=== PATIENT | female | born 1955 | race American Indian/Alaskan Native ===

== ENCOUNTER 2017-07-07 17:06 | Emergency (ER) | payer OTHER ==
[2017-07-07 17:38] VITALS: BP 144/76
--- NOTE | 2017-07-07 19:00 | XRay Report ---
FINAL REPORT PROCEDURE: XR HAND 2V LT TECHNIQUE: LEFT hand radiographs, AP and lateral views. CPT 25372-RN HISTORY: Pain COMPARISON: No prior studies are available for comparison. FINDINGS: Fracture (s) and/or Dislocation(s): None . Alignment: Normal . Joint space(s): Normal . Soft tissues: Normal . Bone mineralization: Normal . Foreign bodies: None . IMPRESSION: Normal Examination .
--- NOTE | 2017-07-07 19:00 | XRay Report ---
FINAL REPORT PROCEDURE: XR WRIST 2V LT TECHNIQUE: LEFT wrist radiographs, AP and lateral views. HISTORY: Pain COMPARISON: No prior studies are available for comparison. FINDINGS: Fracture(s)and/or Dislocation(s): None. Alignment: Normal. Joint space(s): Normal. Soft tissues: Normal. Bone mineralization: Normal. Foreign bodies: None. IMPRESSION: Normal Examination
[2017-07-07] MEDS ORDERED: NORCO 5/325 PO ONE (22:07)
[2017-07-07] MEDS ORDERED: MOTRIN PO ONE (22:07)
--- NOTE | 2017-07-07 22:09 | Emergency Department Report ---
Upper Extremity - HPI Chief Complaint: Extremity Problem,Nontraumatic Stated Complaint: SWELLING IN LEFT HAND Time Seen by Provider: 07/07/17 21:58 Upper Extremity: Left Forearm, Left Wrist Occurred When: 3 Days Severity: moderate Symptoms: Yes Pain with Movement, Yes Swelling, No Deformity, No Limited Range of Movement, No Numbness, No Weakness, No Bruising/Ecchymosis, No Laceration or Abrasion Other History: 61-year-old female past medical history hypertension presents with complaint of 2-3 months of intermittent pain and swelling left wrist and left forearm. Denies any direct trauma no fever no chills no nausea no vomiting denies any paresthesias but does state that she experiences some intermittent pain when flexing or extending her left wrist. This episode began approximately 4 days ago. Patient states she was taking Tylenol at home with minimal relief of her pain. Patient currently taking triamterene hydrochlorothiazide for high blood pressure. States she has not followed up with any physician specifically for this problem. Denies any direct trauma denies any open wounds to left upper extremity. Primary pain is near left wrist. ED Review of Systems ROS: Stated complaint: SWELLING IN LEFT HAND Other details as noted in HPI Constitutional: denies: chills, fever Eyes: denies: eye pain, eye discharge, vision change ENT: denies: ear pain, throat pain Respiratory: denies: cough, shortness of breath, wheezing Cardiovascular: denies: chest pain, palpitations Endocrine: no symptoms reported Gastrointestinal: denies: abdominal pain, nausea, diarrhea Genitourinary: denies: urgency, dysuria, discharge Musculoskeletal: as per HPI, joint swelling (intermittent pain and swelling in her left wrist approximately 3 months every 2-3 weeks), arthralgia. denies: back pain Skin: denies: rash, lesions Neurological: denies: headache, weakness, paresthesias Psychiatric: denies: anxiety, depression Hematological/Lymphatic: denies: easy bleeding, easy bruising ED Past Medical Hx - Past Medical History Hx Hypertension: Yes - Social History Smoking Status: Current Every Day Smoker - Medications Home Medications: Home Medications Medication Instructions Recorded Confirmed Last Taken Type Acetaminophen/Codeine [Tylenol 1 tab PO Q6H PRN #10 tab 07/07/17 Unknown Rx /Codeine # 3 tab] Naproxen [Naprosyn TAB] 500 mg PO BID PRN #25 tablet 07/07/17 Unknown Rx predniSONE [Deltasone] 20 mg PO QDAY #4 tab 07/07/17 Unknown Rx Upper Extremity Exam - Exam General: Vital signs noted. No distress. Alert and acting appropriately. Head and Torso: No HEENT Abnormality, No Neck Tenderness, No Chest/Lungs Abnormality, No Abdominal Tenderness, No Back Tenderness Shoulder Exam: Yes Normal Range of Motion in Shoulder, No Shoulder Tenderness, No Clavicle Tenderness, No Shoulder Deformity, No AC Joint Tenderness Arm Exam: No Arm/Humerus Tenderness, No Arm Deformity Elbow: No Elbow Tenderness, No Normal Range of Motion in Elbow, No Elbow Deformity Forearm: Yes Forearm Tenderness (no reproducible tenderness but patient states that with full extension of the left wrist she experiences some pain), No Forearm Deformity, No Pain with Pronation (pronation and supination fully intact ), No Pain with Supination Wrist: Yes Normal ROM in Wrist (wrist flexion and extension intact, strength 5 out of 5 left hand), No Wrist Tenderness, No Wrist Deformity, No Snuffbox Tenderness, No Pain with Axial Thumb Compression Hand: Yes Normal ROM in Digit(s), No Hand Tenderness, No Hand Deformity, No Digit Tenderness, No Digit(s) Deformity, No Tendon Dysfunction CMS Exam: Yes Normal Distal Pulses (distal radial and ulnar pulses fully intact left upper extremity), Yes Normal Capillary Refill ([place] refill less than 1 second), No Broken Skin, No Normal Distal Sensation (distal sensation fully intact all fingers) Front/Back of Body, Lg (Color): 1 - Patient describes intermittent pain and swelling in this region here. Some visible swelling in her left wrist and MCP joints left hand, no erythema no visible signs of cellulitis no pain with passive or active range of motion fingers no clinical signs of tenosynovitis ED Course Vital Signs 07/07/17 17:29 Temperature 98.3 F Pulse Rate 101 H Respiratory 16 Rate Blood Pressure 144/76 Blood Pressure 144/76 [Right] O2 Sat by Pulse 98 Oximetry ED Medical Decision Making - Lab Data Result diagrams: 07/07/17 22:11 07/07/17 22:11 - Medical Decision Making A/P: Clinical gout left wrist 1-case discussed with before discharge 2-short course Tylenol 3, short course of naproxen. RICE therapy, patient given left wrist splint 3-follow-up with primary care and orthopedics 4-left upper extremity range of motion and neurovascular exam fully intact Critical care attestation.: If time is entered above; I have spent that time in minutes in the direct care of this critically ill patient, excluding procedure time. ED Disposition Clinical Impression: Gout Qualifiers: Gout site: wrist Gout etiology: unspecified cause Chronicity: acute Laterality : left Qualified Code(s): M10.9 - Gout, unspecified Disposition: TO HOME OR SELFCARE Is pt being admited?: No Does the pt Need Aspirin: No Condition: Stable Instructions: Acute Gouty Arthritis (ED), Arthralgia (ED), RICE Therapy (ED) Prescriptions: Acetaminophen/Codeine [Tylenol /Codeine # 3 tab] 1 tab PO Q6H PRN #10 tab PRN Reason: Pain Naproxen [Naprosyn TAB] 500 mg PO BID PRN #25 tablet PRN Reason: Pain predniSONE [Deltasone] 20 mg PO QDAY #4 tab Referrals: BRICE CASTILLO MD [Staff Physician] - 3-5 Days [facility] [Provider Group] - 3-5 Days Forms: Accompanied Note, Work/School Release Form(ED) Time of Disposition: 23:14
[2017-07-07 22:46] LABS: Anion Gap 18 mmol/L; BUN/Creatinine Ratio 27; Blood Urea Nitrogen 30 mg/dL (7-17); Calcium 10.3 mg/dL (8.4-10.2); Carbon Dioxide 28 mmol/L (22-30); Chloride 102.3 mmol/L (98-107); Creatine Kinase 121 units/L (30-135); Glucose 107 mg/dL (65-100); Potassium 4.8 mmol/L (3.6-5.0); Sodium 143 mmol/L (137-145)
[2017-07-07 22:51] LABS: Basophils % (Auto) 0.6 % (0.0-1.8); Eosinophils % (Auto) 1.5 % (0.0-4.3); Hematocrit 46.8 % (30.3-42.9); Hemoglobin 15.5 gm/dl (10.1-14.3); Mean Corpuscular HGB Conc 33 % (30-34); Mean Corpuscular Hemoglobin 32 pg (28-32); Mean Corpuscular Volume 96 fl (79-97); Platelet Count 326 K/mm3 (140-440); Red Cell Distribution Width 13.9 % (13.2-15.2)
== END 2017-07-07 23:20 | disposition home or self-care (01) ==
LOC: ED 17:06
DX: M10.9 Gout, unspecified (principal); I10 Essential (primary) hypertension
CPT/HCPCS: 36415; 80048; 82550; 85025

== ENCOUNTER 2017-09-11 18:44 | Emergency (ER) | payer OTHER ==
[2017-09-11 20:12] VITALS: BP 140/68
--- NOTE | 2017-09-11 20:13 | Emergency Department Report ---
Chief Complaint: Extremity Injury, Lower Stated Complaint: RIGHT FOOT/ANKLE/TOE PAIN Time Seen by Provider: 09/11/17 20:02 - HPI History of Present Illness: Patient is a 62-year-old, -Irish patient who presents to the emergency department with 22 year history of right foot pain. Patient has a large callus on the bottom of the foot the patient states feels like she stepping on a nail. Patient does have a golf instructor that she sees but has not seen him in the last several days. Patient is not in pain management. Patient is here for treatment. - ROS Review of Systems: Systems negative except for the elements that are in HPI - Exam Vital Signs: Vital Signs 09/11/17 18:54 Temperature 98.6 F Pulse Rate 100 H Respiratory 18 Rate Blood Pressure 142/70 O2 Sat by Pulse 100 Oximetry Physical Exam: Exam is completely normal except for the right foot which has a large dry callus on the bottom of the foot MSE screening note: Focused history and physical exam performed. Due to findings the following was ordered: ED Medical Decision Making - Medical Decision Making PT WOULD HAVE BEEN SCREENED OUT FOR COMMUNITY REFERRAL BUT SHE HAS INSURANCE. WILL GIVE MOTRIN 800 FOR PAIN ED Disposition for MSE Clinical Impression: Callus of foot Disposition: DC-01 TO HOME OR SELFCARE Is pt being admited?: No Does the pt Need Aspirin: No Condition: Fair Prescriptions: Naproxen [Naprosyn TAB] 500 mg PO BID PRN #25 tablet PRN Reason: Pain
== END 2017-09-11 20:17 | disposition home or self-care (01) ==
LOC: ED 18:44
DX: L84 Corns and callosities (principal)
CPT/HCPCS: 99282

== ENCOUNTER 2017-11-18 15:24 | Emergency (ER) | payer OTHER ==
[2017-11-18 16:24] VITALS: BP 141/78
[2017-11-18] MEDS ORDERED: DILAUDID IV ONE ×2 (17:34→19:33)
[2017-11-18] MEDS ORDERED: ZOFRAN IV ONE (17:34)
[2017-11-18] MEDS ORDERED: BENADRYL IV ONE ×2 (17:34→19:34)
--- NOTE | 2017-11-18 17:39 | Emergency Department Report ---
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 Angelito Valerio after he attempted to I and D her foot abscess. She could not tolerate the I&D under local anesthesia secondary to pain. He sent pt to the ER to receive IV medication in order to continue the I&D. Patient states that Dr. Valerio I&D'd the foot 1 week ago, took cultures, and she is currently on Cipro and topical Silvadene. She has had a reaccumulation of pus.
[2017-11-18] MEDS ORDERED: XYLOCAINE 1% 20 mL INFILTRATI ONE (17:40)
--- NOTE | 2017-11-18 20:03 | Emergency Department Report ---
ED Extremity Problem HPI - General Chief complaint: Extremity Problem,Nontraumatic Stated complaint: RIGHT FOOT INFECTED Time Seen by Provider: 11/18/17 17:27 Source: patient Mode of arrival: Ambulatory Limitations: No Limitations - History of Present Illness Initial comments: 62-year-old female with the history of a right foot callus for over 20 years with intermittent infection presents to the hospital from her communication center operator's office Dr. Angelito Valerio after he attempted to I and D her foot abscess. She could not tolerate the I&D under local anesthesia secondary to pain. He sent pt to the ER to receive IV medication in order to continue the I&D. Patient states that Dr. Valerio I&D'd the foot 1 week ago, took cultures, and she is currently on Cipro and topical Silvadene. She has had a reaccumulation of pus. -: week(s) (1) Location: right, lower extremity History of Same: Yes Severity scale (0 -10): 8 Quality: stabbing, constant Consistency: constant Improves with: medication Worsens with: weight bearing - Related Data Home Medications Medication Instructions Recorded Confirmed Last Taken Ciprofloxacin HCl [Cipro] 500 mg PO 11/18/17 11/18/17 Lisinopril/Hydrochlorothiazide 1 each PO 11/18/17 11/18/17 [Zestoretic 10-12.5 mg Tablet] Silver Sulfadiazine 11/18/17 11/18/17 Allergies Allergy/AdvReac Type Severity Reaction Status Date / Time No Known Allergies Allergy Unverified 11/18/17 16:24 ED Review of Systems ROS: Stated complaint: RIGHT FOOT INFECTED Other details as noted in HPI Constitutional: denies: chills, fever Eyes: denies: eye pain, eye discharge, vision change ENT: denies: ear pain, throat pain Respiratory: denies: cough, shortness of breath, wheezing Cardiovascular: denies: chest pain, palpitations Endocrine: no symptoms reported Gastrointestinal: denies: abdominal pain, nausea, diarrhea Genitourinary: denies: urgency, dysuria, discharge Musculoskeletal: myalgia (right foot plantar abscess). denies: back pain, joint swelling, arthralgia Skin: lesions Neurological: denies: headache, weakness, paresthesias Psychiatric: denies: anxiety, depression Hematological/Lymphatic: denies: easy bleeding, easy bruising ED Past Medical Hx - Past Medical History Previous Medical History?: Yes Hx Hypertension: Yes - Surgical History Past Surgical History?: Yes Additional Surgical History: partial hysterectomy. C section. Breast cyst removed - Social History Smoking Status: Current Every Day Smoker Substance Use Type: None - Medications Home Medications: Home Medications Medication Instructions Recorded Confirmed Last Taken Type Ciprofloxacin HCl [Cipro] 500 mg PO 11/18/17 11/18/17 History Lisinopril/Hydrochlorothiazide 1 each PO 11/18/17 11/18/17 History [Zestoretic 10-12.5 mg Tablet] Silver Sulfadiazine 11/18/17 11/18/17 History ED Physical Exam - General Limitations: No Limitations General appearance: alert, in no apparent distress - Head Head exam: Present: atraumatic, normocephalic - Eye Eye exam: Present: normal appearance - Respiratory Respiratory exam: Present: normal lung sounds bilaterally. Absent: respiratory distress - Cardiovascular Cardiovascular Exam: Present: regular rate, normal rhythm. Absent: systolic murmur, diastolic murmur, rubs, gallop - Neurological Exam Neurological exam: Present: alert, oriented X3 - Psychiatric Psychiatric exam: Present: normal affect, normal mood - Skin Skin exam: Present: warm, dry, other (abscess right plantar foot also calluses noted. Painful to touch with serosanguineous discharge.) ED Course Vital Signs 11/18/17 11/18/17 16:17 17:57 Temperature 98.6 F Pulse Rate 98 H Respiratory 16 18 Rate Blood Pressure 141/78 O2 Sat by Pulse 100 Oximetry - I & D Right Plantar Foot Site: plantar lateral I & D Procedure: betadine prep, sterile drapes applied, sterile dressing applied , gauze wick placed ED Medical Decision Making - Medical Decision Making Patient has been evaluated by this provider and Dr. Stewart. Discussed patient that she needs to follow up with Dr. Angelito Valerio who is her communication center operator. Discussed the patient to continue her antibiotic and chronic medication. Patient verbalized understanding Critical care attestation.: If time is entered above; I have spent that time in minutes in the direct care of this critically ill patient, excluding procedure time. ED Disposition Clinical Impression: Abscess of right foot Disposition: DC-01 TO HOME OR SELFCARE Is pt being admited?: No Does the pt Need Aspirin: No Condition: Stable Instructions: Abscess (ED) Additional Instructions: Please continue with her antibiotics and chronic pain medicine. Please follow- up with Dr. Angelito Valerio for evaluation and repacking. He can take Tylenol or Motrin or naproxen for pain management. Please do not change the bandage until tomorrow when you see your communication center operator. Referrals: PRIMARY CARE, [Primary Care Provider] - 3-5 Days Forms: Work/School Release Form(ED), Accompanied Note
== END 2017-11-18 21:33 | disposition home or self-care (01) ==
LOC: ED 15:24
DX: L02.611 Cutaneous abscess of right foot (principal); I10 Essential (primary) hypertension; Z90.711 Acquired absence of uterus with remaining cervical stump; F17.200 Nicotine dependence, unspecified, uncomplicated
CPT/HCPCS: 10060; 96374; 96375; 96376; 99282; J1170; J1200; J2405

== ENCOUNTER 2017-11-20 10:00 | Emergency (ER) | payer OTHER ==
[2017-11-20 10:11] VITALS: BP 159/77
--- NOTE | 2017-11-20 12:57 | Emergency Department Report ---
- General Chief complaint: Wound/Laceration Stated complaint: RIGHT FOOT RECHECK Time Seen by Provider: 11/20/17 12:41 Source: patient Mode of arrival: Ambulatory Limitations: No Limitations - History of Present Illness MD complaint: other (patient is here for packing removal at the bottom of right foot.) - Related Data Home Medications Medication Instructions Recorded Confirmed Last Taken Ciprofloxacin HCl [Cipro] 500 mg PO 11/18/17 11/18/17 Lisinopril/Hydrochlorothiazide 1 each PO 11/18/17 11/18/17 [Zestoretic 10-12.5 mg Tablet] Silver Sulfadiazine 11/18/17 11/18/17 Allergies Allergy/AdvReac Type Severity Reaction Status Date / Time No Known Allergies Allergy Unverified 11/18/17 16:24 Abscess Boil HPI - HPI Chief Complaint: Wound/Laceration Stated Complaint: RIGHT FOOT RECHECK Time Seen by Provider: 11/20/17 12:41 History: No Fever, No Pain, No Purulent Drainage, No Numbness, No Foreign Body, No Previous History, No Insect Bite HPI: Patient is here for packing removal at the bottom of right foot. She had I &D 3 days ago. Has not been able to see PCP therefore she came to the ED for removal of the packing. Denies any redness, swelling or drainage from sites. Home Medications: Home Medications Medication Instructions Recorded Confirmed Last Taken Ciprofloxacin HCl [Cipro] 500 mg PO 11/18/17 11/18/17 Lisinopril/Hydrochlorothiazide 1 each PO 11/18/17 11/18/17 [Zestoretic 10-12.5 mg Tablet] Silver Sulfadiazine 11/18/17 11/18/17 Allergies/Adverse Reactions: Allergies Allergy/AdvReac Type Severity Reaction Status Date / Time No Known Allergies Allergy Unverified 11/18/17 16:24 ED Review of Systems ROS: Stated complaint: RIGHT FOOT RECHECK Other details as noted in HPI Comment: All other systems reviewed and negative Constitutional: denies: chills, fever Gastrointestinal: denies: abdominal pain, nausea Skin: lesions ED Past Medical Hx - Past Medical History Previous Medical History?: Yes Hx Hypertension: Yes Additional medical history: Right foot - Surgical History Past Surgical History?: Yes Additional Surgical History: partial hysterectomy. C section. Breast cyst removed, Right foot I&D - Social History Smoking Status: Current Every Day Smoker Substance Use Type: Alcohol, Prescribed - Medications Home Medications: Home Medications Medication Instructions Recorded Confirmed Last Taken Type Ciprofloxacin HCl [Cipro] 500 mg PO 11/18/17 11/18/17 History Lisinopril/Hydrochlorothiazide 1 each PO 11/18/17 11/18/17 History [Zestoretic 10-12.5 mg Tablet] Silver Sulfadiazine 11/18/17 11/18/17 History ED Physical Exam - General Limitations: No Limitations General appearance: alert, in no apparent distress - Head Head exam: Present: atraumatic - Eye Eye exam: Present: normal appearance Pupils: Present: normal accommodation - ENT ENT exam: Present: normal exam, normal orophraynx - Neck Neck exam: Present: normal inspection - Respiratory Respiratory exam: Present: normal lung sounds bilaterally - Cardiovascular Cardiovascular Exam: Present: regular rate - Extremities Exam Extremities exam: Present: other (right foot plantar region wound with packing) ED Course Vital Signs 11/20/17 10:07 Temperature 98.8 F Pulse Rate 100 H Respiratory 20 Rate Blood Pressure 159/77 O2 Sat by Pulse 98 Oximetry - Reevaluation(s) Reevaluation #1: 11/21/17 19:59 Packing removed from bottom of right foot without difficulty. Patient tolerated procedure well wound care instructions given by HERNESTO Dhillon to patient. Critical care attestation.: If time is entered above; I have spent that time in minutes in the direct care of this critically ill patient, excluding procedure time. ED Disposition Clinical Impression: Abscess of right foot Disposition: DC-01 TO HOME OR SELFCARE Is pt being admited?: No Does the pt Need Aspirin: No Condition: Stable Referrals: PRIMARY CARE, [Primary Care Provider] - 3-5 Days
== END 2017-11-20 13:00 | disposition home or self-care (01) ==
LOC: ED 10:00
DX: L02.611 Cutaneous abscess of right foot (principal); I10 Essential (primary) hypertension; F17.200 Nicotine dependence, unspecified, uncomplicated; Z90.711 Acquired absence of uterus with remaining cervical stump
CPT/HCPCS: 99282

== ENCOUNTER 2018-12-17 09:23 | Outpatient (CLI) | payer OTHER ==
--- NOTE | 2018-12-17 09:53 | XRay Report ---
RIGHT FINGER RADIOGRAPHS INDICATION: Pain. COMPARISON: None similar. FINDINGS: An AP view of the right hand with oblique and lateral projections of the third digit demonstrate intact bony articulation. No focal suspicious erosions. Grossly unremarkable soft tissues. CONCLUSION: No acute radiographic abnormality, as described. Thank you for the opportunity to participate in this patient's care.
--- NOTE | 2018-12-17 22:12 | Vascular Lab Report ---
PROCEDURE: VL VENOUS DUPLEX LE LT TECHNIQUE: The routine technique for an ultrasound was performed per protocol from this facility HISTORY: LEFT LEG SWELLING COMPARISONS: None FINDINGS: Diffuse soft tissue swelling No evidence of deep venous thrombosis 7.3 cm ovoid anechoic avascular assumed Givens's cyst in the left proximal calf, given its is size sug gest orthopedic consultation and or close follow-up/further imaging IMPRESSION: Diffuse soft tissue swelling No evidence of deep venous thrombosis 7.3 cm ovoid anechoic avascular assumed Givens's cyst in the left proximal calf, given its is size sug gest orthopedic consultation and or close follow-up/further imaging. This document is electronically signed by Prabhjot Hernandez MD., December 17 2018 10:10:18 PM ET
== END 2018-12-17 09:24 | disposition home or self-care (01) ==
LOC: VAS 09:23
PROVIDERS: ATTEND Family Medicine
DX: M79.89 Other specified soft tissue disorders (principal); M79.644 Pain in right finger(s); I10 Essential (primary) hypertension; Z90.710 Acquired absence of both cervix and uterus